=== PATIENT | male | born 2000 | race Two or more races ===

== ENCOUNTER 2018-09-11 03:18 | Outpatient (CLI) | END 2018-09-11 03:30 | disposition short-term general hospital (02) | LOC: AMBL 03:18 | PROVIDERS: ATTEND Family Medicine | DX: S61.412A Laceration without foreign body of left hand, initial encounter (principal); S41.112A Laceration without foreign body of left upper arm, initial encounter; S81.012A Laceration without foreign body, left knee, initial encounter; V44.5XXA Car driver injured in collision with heavy transport vehicle or bus in traffic accident, initial encounter ==